=== PATIENT | male | born 1995 | race Caucasian/White ===

== ENCOUNTER 2018-11-02 23:11 | Emergency (ER) | payer OTHER ==
--- NOTE | 2018-11-02 23:42 | RADIOLOGY REPORT (SQ) ---
EXAM DESCRIPTION: XR ANKLE 3 OR MORE VIEWS COMPLETED DATE/TME: 11/02/2018 00:00 CLINICAL HISTORY: 23 years, Male, injury COMPARISON: None. NUMBER OF VIEWS: 3 TECHNIQUE: 3 view left ankle LIMITATIONS: None. FINDINGS: Minimally displaced medial malleolus fracture, with extension to the articular surface.. There are adjacent well-corticated ossific densities which may reflect old avulsion injuries. No dislocation. Soft tissue swelling. IMPRESSION: Minimally displaced medial malleolus fracture. copyright 2010 [employer]- All Rights Reserved
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
[2018-11-03] MEDS ORDERED: HYDROCODONE/ACETAMINOPHEN 5-325 MG (6 TAB/ER DISP) PO PRN (00:33)
[2018-11-03 02:42] VITALS: BP 128/72
== END 2018-11-03 01:33 | disposition home or self-care (01) ==
LOC: ER 23:11
DX: S82.55XA Nondisplaced fracture of medial malleolus of left tibia, initial encounter for closed fracture (principal); M25.572 Pain in left ankle and joints of left foot; V19.9XXA Pedal cyclist (driver) (passenger) injured in unspecified traffic accident, initial encounter; Y93.55 Activity, bike riding
CPT/HCPCS: 99283